=== PATIENT | female | born 1970 | race Hispanic/Latino ===

== ENCOUNTER 2022-07-05 13:04 | Inpatient (IN) | payer OTHER ==
[~2022-07-05] VITALS: Ht 165.1 cm; Wt 94.5 kg
[2022-07-05] MEDS ORDERED: ONDANSETRON HCL INJ 2MG/ML 2ML 2 MG/ML VIAL ONE (13:23)
[2022-07-05] MEDS ORDERED: SODIUM CHLORIDE 0.9% 1000ML 1,000 ML ONE (13:23)
[2022-07-05] MEDS ORDERED: FAMOTIDINE 20 MG/2 ML VIAL IV ONE ×2 (13:23→14:30)
[2022-07-05] MEDS: FAMOTIDINE 20 MG/2 ML VIAL IV SCH (13:33)
[2022-07-05] MEDS ORDERED: POTASSIUM CHLORIDE 20 MEQ TAB CR PO STA (14:07)
[2022-07-05] MEDS ORDERED: SODIUM CHLORIDE 0.9% 1000ML 1,000 ML IV STA (14:07)
[2022-07-05] MEDS ORDERED: CLONIDINE HCL 0.2 MG TAB PO PRN (14:15)
[2022-07-05] MEDS ORDERED: ACETAMINOPHEN 325 MG TAB PO PRN (14:15)
[2022-07-05] MEDS ORDERED: DIPHENHYDRAMINE HCL INJ 50 MG/ML VIAL IV PRN (14:15)
[2022-07-05] MEDS ORDERED: ZOLPIDEM TARTRATE 5 MG TAB PO PRN (14:15)
[2022-07-05] MEDS ORDERED: DEXTROSE 50% SYRINGE 50 ML IV PRN (14:15)
[2022-07-05] MEDS ORDERED: ONDANSETRON HCL INJ 2MG/ML 2ML 2 MG/ML VIAL IV PRN ×2 (14:15)
[2022-07-05] MEDS ORDERED: ONDANSETRON HCL INJ 2MG/ML 2ML 2 MG/ML VIAL IV ONE (14:15)
[2022-07-05] MEDS ORDERED: INSULIN REGULAR, HUMAN 100 UNIT/1 ML IV ONE ×2 (14:30→15:00)
[2022-07-05] MEDS ORDERED: POTASSIUM CHLORIDE 20 MEQ TAB CR PO ONE (14:36)
[2022-07-05] MEDS ORDERED: INSULIN REGULAR, HUMAN 100 UNIT/1 ML SQ ONE (15:00)
[2022-07-05] MEDS ORDERED: ASPIRIN 81 MG CHEW TAB PO ONE (15:00)
[2022-07-05] MEDS ORDERED: ASPIRIN 81 MG CHEW TAB ONE (15:50)
[2022-07-05] MEDS ORDERED: COREG6.25 MG PO (16:20)
[2022-07-05] MEDS ORDERED: METFORMIN HCL500 MG PO (16:20)
[2022-07-05] MEDS ORDERED: HYDROCHLOROTHIA25 MG PO (16:50)
[2022-07-05 16:51] VITALS: BP 140/65
[2022-07-05] MEDS ORDERED: LOSARTAN POTASS25 MG PO (16:51)
[2022-07-05] MEDS ORDERED: FUROSEMIDE40 MG PO (16:51)
[2022-07-05] MEDS: INSULIN REGULAR, HUMAN 100 UNIT/1 ML SQ SCH ×2 (17:16→20:47)
[2022-07-05 17:56] LABS: CALCIUM 9.8 mg/dL (8.4-10.2); CREATININE, SERUM 1.15 mg/dL (0.57-1.11)
[2022-07-05 18:26] LABS: CREATINE KINASE MB 0.4 ng/mL (0-5.0)
[2022-07-05 18:33] VITALS: BP 140/65
[2022-07-05 20:00] VITALS: BP 112/70
[2022-07-05] MEDS ORDERED: INSULIN GLARGINE 100 UNITS/ML VIAL SQ ONE (20:30)
[2022-07-06] VITALS: BP 144/77
[2022-07-06] MEDS: FAMOTIDINE 20 MG/2 ML VIAL IV SCH ×2 (02:19→14:15)
[2022-07-06 06:47] LABS: BASOPHILS # (AUTO) 0.1 (0.0-0.1); BASOPHILS % 0.9 % (0.0-1.0); EOSINOPHILS # (AUTO) 0.4 (0.0-0.4); EOSINOPHILS % 4.6 % (0.0-6.0); HEMATOCRIT 43.1 % (34.2-44.1); HEMOGLOBIN 14.2 g/dL (12.0-16.0); LYMPHOCYTES # (AUTO) 3.3 (1.0-3.2); LYMPHOCYTES % 41.4 % (18.0-39.1); MEAN CORPUSCULAR HEMOGLOBIN 29.5 pg (28-32); MEAN CORPUSCULAR HGB CONC 32.9 g/dL (31-35); MEAN CORPUSCULAR VOLUME 89.6 fL (81-99); MONOCYTES # (AUTO) 0.6 (0.2-0.8); MONOCYTES % 6.9 % (4.4-11.3); NEUTROPHILS # (AUTO) 3.7 (2.1-6.9); PLATELET COUNT 330 x10e3/uL (140-360); RED BLOOD COUNT 4.81 x10e6/uL (3.6-5.1)
[2022-07-06 07:11] LABS: ANION GAP 13.6 mmol/L (8-16); CALCIUM 9.5 mg/dL (8.4-10.2); CHOL/HDL RATIO 5.9 (3.0-3.6)
[2022-07-06 07:14] LABS: POTASSIUM 2.6 mmol/L (3.5-5.1)
[2022-07-06 07:29] LABS: CREATINE KINASE MB 0.3 ng/mL (0-5.0)
[2022-07-06 08:00] VITALS: BP 144/77
[2022-07-06 08:36] VITALS: BP 149/90
[2022-07-06] MEDS ORDERED: POTASSIUM CHLORIDE 20 MEQ TAB CR PO ONE (08:45)
[2022-07-06 09:15] LABS: MAGNESIUM 1.8 MG/DL (1.3-2.1); PHOSPHORUS 2.9 MG/DL (2.3-4.7)
[2022-07-06] MEDS: VALSARTAN 160 MG TAB PO SCH (09:27)
[2022-07-06] MEDS ORDERED: INSULIN GLARGINE 100 UNITS/ML VIAL SQ ONE (09:30)
[2022-07-06] MEDS: CARVEDILOL 3.125 MG TAB PO SCH (09:31)
[2022-07-06 09:36] LABS: THYROID STIMULATING HORMONE 0.928 uIU/mL (0.350-4.940)
[2022-07-06] MEDS: INSULIN REGULAR, HUMAN 100 UNIT/1 ML SQ SCH (09:36)
[2022-07-06] MEDS: INSULIN LISPRO 100 UNIT/1 ML 3ML VIAL SQ SCH ×3 (11:30→23:44)
[2022-07-06 12:19] VITALS: BP 133/83
[2022-07-06] MEDS: POTASSIUM CHL 40 MEQ in SODIUM CHLORIDE 0.9% 1000ML 1,000 ML IV SCH ×2 (13:25→22:46)
[2022-07-06 20:00] VITALS: BP 136/76
[2022-07-06] MEDS ORDERED: INSULIN GLARGINE 100 UNITS/ML VIAL SQ SCH (21:00)
[2022-07-06] MEDS ORDERED: DEXTROSE 50% SYRINGE 50 ML IV PRN (23:30)
[2022-07-07] VITALS (7 sets, daily range): BP systolic 136–154; BP diastolic 76–95
[2022-07-07] MEDS: FAMOTIDINE 20 MG/2 ML VIAL IV SCH ×2 (01:42→17:57)
[2022-07-07] MEDS: POTASSIUM CHL 40 MEQ in SODIUM CHLORIDE 0.9% 1000ML 1,000 ML IV SCH ×3 (04:31→20:55)
[2022-07-07 06:40] LABS: ALBUMIN 3.1 g/dL (3.5-5.0); ALBUMIN/GLOBULIN RATIO 0.9 (0.8-2.0); CALCIUM 8.8 mg/dL (8.4-10.2); CREATININE, SERUM 0.77 mg/dL (0.57-1.11)
[2022-07-07 06:53] LABS: MAGNESIUM 1.9 MG/DL (1.3-2.1); PHOSPHORUS 2.2 MG/DL (2.3-4.7)
[2022-07-07] MEDS: VALSARTAN 160 MG TAB PO SCH (09:56)
[2022-07-07] MEDS: CARVEDILOL 3.125 MG TAB PO SCH (09:57)
[2022-07-07] MEDS ORDERED: ONDANSETRON HCL 4 MG ORAL DISINTEGRATING TAB PO PRN (10:00)
[2022-07-07] MEDS: INSULIN LISPRO 100 UNIT/1 ML 3ML VIAL SQ SCH ×7 (10:07→20:47)
[2022-07-07] MEDS ORDERED: POTASSIUM CHLORIDE 10MEQ EA PO ONE (11:00)
[2022-07-07] MEDS ORDERED: POTASSIUM PHOSPHATE 20 MM in SODIUM CHLORIDE 0.9% 250ML 250 ML IV SCH (11:00)
[2022-07-07 14:47] LABS: FREE T4 (FREE THYROXINE) 1.04 ng/dL (0.8-1.8); THYROID STIMULATING HORMONE 1.318 uIU/mL (0.350-4.940)
[2022-07-07] MEDS: ACETAMINOPHEN 325 MG TAB PO PRN (15:46)
[2022-07-07] MEDS ORDERED: INSULIN GLARGINE 100 UNITS/ML VIAL SQ SCH ×2 (21:00)
[2022-07-08] VITALS (9 sets, daily range): BP systolic 135–167; BP diastolic 71–91
[2022-07-08] MEDS: FAMOTIDINE 20 MG/2 ML VIAL IV SCH ×2 (06:13→16:50)
[2022-07-08 06:19] LABS: ANION GAP 11.2 mmol/L (8-16); CALCIUM 8.8 mg/dL (8.4-10.2); CREATININE, SERUM 0.73 mg/dL (0.57-1.11); POTASSIUM 4.2 mmol/L (3.5-5.1)
[2022-07-08 06:42] LABS: MAGNESIUM 1.9 MG/DL (1.3-2.1)
[2022-07-08] MEDS: INSULIN LISPRO 100 UNIT/1 ML 3ML VIAL SQ SCH ×6 (07:30→22:32)
[2022-07-08] MEDS ORDERED: ACETAMINOPHEN 1000 MG/100 ML IV ONE (12:00)
[2022-07-08] MEDS: POTASSIUM CHL 40 MEQ in SODIUM CHLORIDE 0.9% 1000ML 1,000 ML IV SCH ×2 (12:30→21:48)
[2022-07-08] MEDS: METOCLOPRAMIDE HCL 10 MG TAB PO SCH ×2 (16:50→21:49)
[2022-07-08] MEDS: CARVEDILOL 3.125 MG TAB PO SCH (16:50)
[2022-07-08] MEDS: VALSARTAN 160 MG TAB PO SCH (16:50)
[2022-07-08] MEDS ORDERED: INSULIN GLARGINE 100 UNITS/ML VIAL SQ SCH (21:00)
[2022-07-08] MEDS: ACETAMINOPHEN 325 MG TAB PO PRN (21:49)
[2022-07-09 01:33] VITALS: BP 145/84
[2022-07-09] MEDS: FAMOTIDINE 20 MG/2 ML VIAL IV SCH (03:01)
[2022-07-09] MEDS: ACETAMINOPHEN 325 MG TAB PO PRN (04:36)
[2022-07-09 05:34] VITALS: BP 147/93
[2022-07-09 08:00] VITALS: BP 147/93
[2022-07-09] MEDS: METOCLOPRAMIDE HCL 10 MG TAB PO SCH (08:06)
[2022-07-09] MEDS: INSULIN LISPRO 100 UNIT/1 ML 3ML VIAL SQ SCH ×2 (08:07)
[2022-07-09 08:12] VITALS: BP 156/87
[2022-07-09] MEDS: VALSARTAN 160 MG TAB PO SCH (09:28)
[2022-07-09] MEDS: CARVEDILOL 3.125 MG TAB PO SCH (09:28)
[2022-07-09] MEDS: POTASSIUM CHL 40 MEQ in SODIUM CHLORIDE 0.9% 1000ML 1,000 ML IV SCH (09:29)
[2022-07-09] MEDS ORDERED: REGLAN5 MG PO (09:55)
[2022-07-09] MEDS ORDERED: FARXIGA5 MG PO (09:56)
[2022-07-09] MEDS ORDERED: FAMOTIDINE20 MG PO (09:56)
[2022-07-09] MEDS ORDERED: LANTUS 3ML100 UNITS/ SC (09:57)
[2022-07-09] MEDS ORDERED: NOVOLOG MI100 UNIT/1 SC (09:57)
== END 2022-07-09 10:21 | disposition home or self-care (01) | DRG 74 ==
LOC: FSED 13:32 → ERHOLD 14:15 → MED/SURG2 15:53 → INTOOBSV 07-06 09:57 → OBSVTOIN 07-06 09:57
PROVIDERS: ADMIT Internal Medicine; ATTEND Internal Medicine
DX: E11.43 Type 2 diabetes mellitus with diabetic autonomic (poly)neuropathy (principal); E11.65 Type 2 diabetes mellitus with hyperglycemia; E87.6 Hypokalemia; K31.84 Gastroparesis; R94.31 Abnormal electrocardiogram [ECG] [EKG]; E86.0 Dehydration; E78.5 Hyperlipidemia, unspecified; I10 Essential (primary) hypertension; Z79.84 Long term (current) use of oral hypoglycemic drugs; Z79.899 Other long term (current) drug therapy; Z83.3 Family history of diabetes mellitus
CPT/HCPCS: 36415; 74176; 78227; 78264; 80048; 80053; 80061; 80076; 81003; 81025; 82550; 82553; 82948; 83036; 83735; 84100; 84439; 84443; 84484; 85025; 93005; 96361; 96374; 96376; 99252; 99284; A9537; A9541; G0378; J1817; J2405; J3480; J7030

== ENCOUNTER 2025-02-11 17:57 | Emergency (ER) | payer SELFPAY ==
[~2025-02-11] VITALS: Ht 162.6 cm; Wt 78.0 kg
[~2025-02-11 17:57] MED LIST: COREG6.25 MG PO; FAMOTIDINE20 MG PO; FARXIGA5 MG PO; FUROSEMIDE40 MG PO; HYDROCHLOROTHIA25 MG PO; LANTUS 3ML100 UNITS/ SC; LOSARTAN POTASS25 MG PO; METFORMIN HCL500 MG PO; NOVOLOG MI100 UNIT/1 SC; REGLAN5 MG PO
[2025-02-11 18:04] VITALS: PULSE 82; RESP 18; TEMP 98.6; O2SAT 100
[2025-02-11] MEDS ORDERED: ENEMA READY TO133 ML PR (18:17)
[2025-02-11] MEDS ORDERED: GOLYTELY SOLU4000 M1 PO (18:17)
== END 2025-02-11 18:29 | disposition home or self-care (01) ==
LOC: ER 18:01
DX: K59.00 Constipation, unspecified (principal); I10 Essential (primary) hypertension; E11.9 Type 2 diabetes mellitus without complications
CPT/HCPCS: 99282